=== PATIENT | female | born 2000 | race Caucasian/White ===

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

== ENCOUNTER 2020-10-03 22:47 | Emergency (ER) | payer BC, SELFPAY ==
[2020-10-03 23:07] VITALS: BP 124/82; PULSE 80; RESP 15; TEMP 36.8; O2SAT 98; BMI 29.5
--- NOTE | 2020-10-03 23:11 | XRR_ITS ---
PROCEDURE INFORMATION: Exam: XR Chest Exam date and time: 10/03/2020 11:11 PM Age: 20 years old Clinical indication: Cough and shortness of breath; Additional info: Cough, SOB, chest pressure TECHNIQUE: Imaging protocol: XR of the chest. Views: 1 view. COMPARISON: CR XR chest 2V* [id number] 05/24/2019 5:44 PM FINDINGS: Lungs: Unremarkable. No consolidation. Pleural spaces: Unremarkable. No pleural effusion. No pneumothorax. Heart/Mediastinum: Unremarkable. No cardiomegaly. Bones/joints: Unremarkable. XR/XR chest 1V portable [id number] IMPRESSION: No acute disease.
--- NOTE | 2020-10-03 23:17 | ED_ITS ---
HPI - COVID General: Chief Complaint: COVID symptoms Stated Complaint: COVID EXPOSURE/HAS COUGH Time Seen by Provider: 10/03/20 23:11 Source: patient Mode of arrival: ambulatory Limitations: no limitations Triage information: Has fever, cough or shortness of breath . 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 She states over the last 2 days she has had generalized weakness along with a cough and body aches. States she is just felt tired as well. She is in no distress here and pulse ox is 98%. She denies any vomiting or diarrhea. Denies any worsening improving factors. COVID 19 common symptoms: positive chills, non-productive cough and body aches; negative headache(s), throat pain, nausea, vomiting or diarrhea COVID 19 other sytmptoms: negative chest pain COVID Results: SARS-CoV-2 Antigen (Rapid) Positive (Negative) H 10/03/20 23:35 10/03/20 Review of Systems Const: Reports: chills and body aches Eyes: Denies: blurry vision or eye discomfort ENMT: Denies: throat pain or dental pain Card: Denies: chest pain Resp: Reports: non-productive cough GI: Denies: abdominal pain, nausea, vomiting or diarrhea : Denies: dysuria Musc: Denies: neck pain or back pain Skin/Breast: Denies: rash Neuro: Denies: headache(s) Psych: Denies: depression Jose C/Lymph: Denies: easy bruising All/Imm: Denies: urticaria PFSH ED PFSH: Social History Smoking and tobacco status: current every day smoker e-cigarettes Alcohol intake: never History of recent travel: No Female Reproductive History: Date of last menstrual period: 10/03/20 Physical Exam Const: COMMON NORMALS: no acute distress, patient oriented x3 and healthy appearing HENMT: COMMON NORMALS: normocephalic and atraumatic HEAD & SCALP: normocephalic and atraumatic Eye: COMMON NORMALS: Equal, round and reactive pupils present and EOMs intact bilaterally PUPIL: Yes Equal, round and reactive pupils present Neck/C-Spine: COMMON NORMALS: full ROM and supple Chest: COMMONS NORMALS: normal inspection of the chest and normal palpation of entire chest wall Resp: COMMON NORMALS: normal respiratory effort, No retractions, No use of accessory muscles and clear to auscultation bilaterally AUSCULTATION: clear to auscultation bilaterally Cardio: COMMON NORMALS: regular rate, regular rhythm and No murmurs present (Cardio) RATE: regular rate RHYTHM: regular rhythm GI: COMMON NORMALS: Normal to inspection, nondistended, normoactive bowel sounds present, Soft to palpation, non-tender and no masses PALPATION: Yes Soft to palpation Extremity: COMMON NORMALS: normal to inspection and full ROM Neuro: COMMON NORMALS: patient oriented x3, moves all extremities and no focal motor deficits Psych: COMMON NORMALS: mental status grossly normal, Normal thought process present and cooperative THOUGHT PROCESS: Normal thought process present Skin: COMMON NORMALS: no rashes or lesions noted and no wounds GENERAL SKIN EXAM: no rashes or lesions noted Course Vital Signs: Vital signs: Vital Signs Temperature 98.2 F 10/03/20 23:07 Pulse Rate 82 10/03/20 23:48 Respiratory Rate 18 10/03/20 23:48 Blood Pressure 130/80 10/03/20 23:48 Pulse Oximetry 97 10/03/20 23:48 MDM - COVID MDM Narrative: Medical decision making narrative: Patient presents here with body aches and cough and does have COVID-19. Her x-ray here is clear and her vitals are all normal. She is stable for discharge follow-up PCP and return if worsening. She understands agrees to plan. Lab Data: Labs: Lab Results 10/03/20 Range/Units 23:35 SARS-CoV-2 Ag (Rap id) Positive H (Negative) Imaging Data: CXR: Attestation: I personally reviewed and interpreted this imaging study as follows: Radiologist's impression: [address] [place] [address] XRay Report Signed Patient: Thais Kuhn Unit #: [id number] : 2000 Age/Sex: 20 / F ADM Date: 10/03/20 Loc: ER Room/Bed: Attending Dr: Ordering Provider/Ordering MD: Marycarmen Marti MD Date of Service: 10/03/20 Procedure(s): XR chest 1V portable [id number] Accession Number(s): [id number] Report Number: [id number] PROCEDURE INFORMATION: Exam: XR Chest Exam date and time: 10/03/2020 11:11 PM Age: 20 years old Clinical indication: Cough and shortness of breath; Additional info: Cough, SOB, chest pressure TECHNIQUE: Imaging protocol: XR of the chest. Views: 1 view. COMPARISON: CR XR chest 2V* [id number] 05/24/2019 5:44 PM FINDINGS: Lungs: Unremarkable. No consolidation. Pleural spaces: Unremarkable. No pleural effusion. No pneumothorax. Heart/Mediastinum: Unremarkable. No cardiomegaly. Bones/joints: Unremarkable. XR/XR chest 1V portable [id number] IMPRESSION: No acute disease. COVID Results: SARS-CoV-2 Antigen (Rapid) Positive (Negative) H 10/03/20 23:35 10/03/20 Discharge Plan Discharge Patient Disposition: Home Clinical Impression: COVID-19 Condition: Stable Prescriptions: No Action norethindrone ac-eth estradiol [ (21)] 1.5-30 mg-mcg tablet 1 tab PO DAILY RF: 0 Discharge Orders: Discharge ED (Routine); Ordered 10/04/20 Ordered By: Marycarmen Marti Referrals: John Sauceda DO [Primary Care Provider] - 1-3 days Discharge Diet: Advance as tolerated Discharge Activity: Resume usual activity Patient Instructions: Upper Respiratory Infection (ED) Coding Level of Care Code ED 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
[2020-10-03 23:43] VITALS: O2SAT 97
[2020-10-03 23:48] VITALS: BP 130/80; PULSE 82; RESP 18; O2SAT 97
[2020-10-04 00:03] LABS: SARS Covid-2 Antigen Positive (Negative)
[2020-10-04 00:13] VITALS: BP 118/75; PULSE 55; RESP 18; O2SAT 97
== END 2020-10-04 00:15 | disposition home or self-care (01) ==
PROVIDERS: Emergency Provider Emergency Medicine; PCP Family Medicine
DX: U07.1 COVID-19 (principal); F17.290 Nicotine dependence, other tobacco product, uncomplicated
CPT/HCPCS: 71045; 87426; 99282

== ENCOUNTER 2021-06-29 15:38 | Outpatient (CLI) | payer BC, SELFPAY ==
--- NOTE | 2021-06-29 15:59 | XR_ITS ---
WS: [id number] Exam: XR hip LT 2-3V wo/w pel* [id number] Date/Time of Exam: 06/29/2021 3:59 PM Reason For Exam: HIP PAIN, LEFT Findings: No fractures or bone anomalies are noted. No unusual soft tissue masses or calcifications are seen. The bony elements of the hip are in adequate alignment. XR/XR hip LT 2-3V wo/w pel* [id number] IMPRESSION: Negative left hip. Tonnis classification: 0
== END 2021-06-29 15:39 | disposition home or self-care (01) ==
LOC: RAD 15:47
PROVIDERS: PCP Family Medicine; Visit Provider Family Medicine
DX: M25.552 Pain in left hip (principal)
CPT/HCPCS: 73502

== ENCOUNTER 2022-02-20 07:39 | Outpatient (CLI) | payer BC, SELFPAY ==
--- NOTE | 2022-02-20 08:00 | MR_ITS ---
WS: [id number] MRI LEFT HIP NONCONTRAST TECHNIQUE: Axial T1, axial T2 fat sat, coronal T1, coronal STIR, sagittal T2 fat sat, sagittal T1, an d sagittal T2 fat sat, of both hips. CLINICAL INFORMATION: left hip pain and decreased ROM COMPARISON: None. FINDINGS: Edema visualized in the LEFT sacral ala suspicious for nondisplaced traumatic or insufficiency fractu res. This is only included on the coronal STIR imaging. Small amount of edema adjacent to the RIGHT S I joint. LEFT hip is normal in appearance. Normal visualized LEFT pubic rami. Normal bone marrow sign al in the LEFT femoral head and neck. No evidence of avascular necrosis LEFT hip. Normal visualized s oft tissues. No other suspicious findings. MR/MR hip LT wo con* [id number] IMPRESSION: 1. Edema within the LEFT sacral ala suspicious for posttraumatic nondisplaced or insufficiency fractures. Recommend correlation with history of trauma. This is only included on the coronal STIR imaging. Small amount of edema adjacent to the RIGHT SI joint. Findings can be further evaluated with dedicated sacral MR I. 2. LEFT hip is normal in appearance. No acute fractures. No evidence of avascu lar necrosis. 3. No other suspicious findings.
== END 2022-02-20 07:40 | disposition home or self-care (01) ==
PROVIDERS: PCP Family Medicine; Visit Provider Clinical Nurse Specialist Adult Health
DX: M25.552 Pain in left hip (principal); R60.0 Localized edema
CPT/HCPCS: 73721

== ENCOUNTER → 2022-08-22 07:48 | Outpatient (BNVA) | payer BC, SELFPAY | PROVIDERS: PCP Family Medicine; Visit Provider Family Medicine | DX: Z00.00 Encounter for general adult medical examination without abnormal findings (principal); F41.1 Generalized anxiety disorder | CPT/HCPCS: 80053; 84443; 85025 ==

== ENCOUNTER → 2022-08-23 07:52 | Outpatient (BNVA) | payer BC, SELFPAY | PROVIDERS: PCP Family Medicine; Visit Provider Family Medicine | DX: F41.1 Generalized anxiety disorder (principal) | CPT/HCPCS: 84439; 84481 ==

== ENCOUNTER 2022-09-18 16:34 | Outpatient (CLI) | payer BC, SELFPAY ==
[2022-09-18 20:24] LABS: Estmated Average Glucose 100; Hemoglobin A1C 5.1 % (4.0-6.0)
[2022-09-18 20:35] LABS: T3 Free 3.2 PG/ML (2.0-4.4); Thyroid Stimulating Hormone 1.89 uIU/mL (0.27-4.20)
== END 2022-09-18 16:35 | disposition home or self-care (01) ==
LOC: LAB 16:35
PROVIDERS: PCP Family Medicine; Visit Provider Family Medicine
DX: E03.8 Other specified hypothyroidism (principal)
CPT/HCPCS: 83036; 84439; 84443; 84481